=== PATIENT | female | born 1965 | race American Indian/Alaskan Native ===

== ENCOUNTER 2018-06-04 09:35 | Outpatient (CLI) | payer OTHER ==
--- NOTE | 2018-06-04 17:08 | XRay Report ---
FINAL REPORT EXAM: XR KNEE BILAT 1-2V HISTORY: KNEE PAIN TECHNIQUE: AP and lateral radiographs of the right and left knees. PRIORS: None. FINDINGS: No fracture. No dislocation. Normal mineralization. No soft tissue abnormality. There are bilateral knee joint effusions. No significant degenerative changes seen on either side. A sclerotic lesion is seen within the medial aspect of the left distal femur measuring 1.9 x 0.9 centimeters. Mild tricompartment osteophyte formations are seen involving the left knee. No significant degenerative changes of the right knee. IMPRESSION: 1. Bilateral knee joint effusions. 2. Mild osteoarthritis of the left knee. 3. Nonspecific benign-appearing sclerotic lesion in the left distal femur may represent an enchondroma or bone infarct.
== END 2018-06-04 09:36 | disposition home or self-care (01) ==
LOC: XRAY 09:35
PROVIDERS: ATTEND Internal Medicine
DX: Z02.71 Encounter for disability determination (principal); M25.462 Effusion, left knee; M25.461 Effusion, right knee; M17.12 Unilateral primary osteoarthritis, left knee